=== PATIENT | male | born 1980 | race Asian ===

== ENCOUNTER 2016-11-07 22:25 | Emergency (ER) | payer OTHER ==
[~2016-11-07] VITALS: Ht 177.8 cm; Wt 99.7 kg
[2016-11-07] MEDS ORDERED: SOD CHLORIDE 0.9% 1,000 ML IV STA (22:28)
[2016-11-07] MEDS ORDERED: DIPHTH/TET/ACEL PERTUSS (ADULT) 0.5 ML VIAL IM* ONE (22:30)
[2016-11-07] MEDS ORDERED: NEOMYC/POLYMYX/BACIT 30 GM OINT TOP ONE (22:30)
[2016-11-07 22:40] VITALS: Ht 177.8 cm; Wt 99.7 kg
[2016-11-07 22:59] LABS: ADD SCAN DIFF NO
[2016-11-07] MEDS ORDERED: AMIODARONE 150 MG INJ IV STA (22:59)
[2016-11-07 23:11] LABS: BASOPHIL # 0.1 10^3/ul (0.0-0.1); BASOPHILS % 0.6 % (0.0-2.0); EOSINOPHILS # 0.4 10^3/ul (0.0-0.5); HEMATOCRIT 44.6 % (42.0-52.0); HEMOGLOBIN 14.8 g/dl (14.0-18.0); LYMPHOCYTES # 4.1 10^3/ul (0.8-2.9); LYMPHOCYTES % 38.4 % (15.0-51.0); MEAN CORPUSCULAR HEMOGLOBIN 29.5 pg (29.0-33.0); MEAN CORPUSCULAR HGB CONC 33.2 g/dl (32.0-37.0); MEAN CORPUSCULAR VOLUME 88.8 fl (82.0-101.0); MEAN PLATELET VOLUME 9.1 fl (7.4-10.4); MONOCYTE # 0.8 10^3/ul (0.3-0.9); MONOCYTES % 7.2 % (0.0-11.0); NEUTROPHIL # 5.3 10^3/ul (1.6-7.5); NEUTROPHILS % 49.2 % (39.0-77.0); PLATELET COUNT 317 10^3/UL (140-415); RED BLOOD COUNT 5.02 10^6/ul (4.70-6.10); WHITE BLOOD COUNT 10.8 10^3/ul (4.8-10.8)
[2016-11-07 23:28] LABS: ALBUMIN 4.1 g/dl (3.3-4.9); CHLORIDE 102 mmol/L (97-110)
[2016-11-07 23:29] LABS: POTASSIUM 3.3 mmol/L (3.5-5.1); SODIUM 138 mmol/L (135-144)
[2016-11-07] MEDS ORDERED: SIMV40TA2 PO (23:29)
[2016-11-07] MEDS ORDERED: SERT50TA6 PO (23:30)
[2016-11-07] MEDS ORDERED: AMLO-147 PO (23:30)
[2016-11-07 23:31] LABS: ALBUMIN/GLOBULIN RATIO 1.41; ANION GAP 16 (8-16); ASPARTATE AMINO TRANSFERASE 30 IU/L (15-46); BILIRUBIN,INDIRECT 0.1 mg/dl (0-1.1); BILIRUBIN,TOTAL 0.1 mg/dl (0.2-1.3); CARBON DIOXIDE 23 mmol/L (21-31); CREATININE 0.93 mg/dl (0.61-1.24)
[2016-11-07 23:32] LABS: ALANINE AMINOTRANSFERASE 35 IU/L (13-69); ALKALINE PHOSPHATASE 146 IU/L (42-121); BLOOD UREA NITROGEN 12 mg/dl (7-20); GLUCOSE 117 mg/dl (70-220)
[2016-11-07 23:37] LABS: TROPONIN-I < 0.012 ng/ml (0.00-0.12)
--- NOTE | 2016-11-07 23:43 | RADRPT ---
PROCEDURE: XR Chest. CLINICAL INDICATION: Abdominal pain. TECHNIQUE: Single frontal view of the chest was obtained COMPARISON: None FINDINGS: Heart size is at upper limits of normal. Hypoinflated lungs accentuate cardiac silhouette and pulmo nary vascular markings. The lungs are otherwise clear. There is no pleural effusion or pneumothorax. IMPRESSION: No acute disease. RPTAT: [facility] Physician Roldan Date Time Electronically viewed and signed by Physician Roldan on 11/07/2016 23:42 RS/
[2016-11-07] MEDS ORDERED: IBUP-1542 PO (23:57)
[2016-11-08] MEDS ORDERED: IBUPROFEN 600 MG TAB PO ONE
--- NOTE | 2016-11-08 | RADRPT ---
PROCEDURE: CT head, without contrast. CLINICAL INDICATION: Head trauma with concern for intracranial hemorrhage. TECHNIQUE: Noncontrast CT examination of the head, with axial, sagittal and coronal reformatted im ages. Automated dose exposure control was employed. CTDI: 44.40 and DLP: 720.23. COMPARISON: None. FINDINGS: No acute hemorrhage. Subarachnoid spaces are substantially preserved and symmetric. Ventricles ar e unremarkable. No mass effect. Herrera-white matter distinction is preserved without evident decreased attenuation t o suggest acute or recent infarct. Sinuses and osseous structures are unremarkable. IMPRESSION: No acute process in the head. RPTAT: [facility] Physician Roldan Date Time Electronically viewed and signed by Physician Roldan on 11/08/2016 00:00 RS/
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
[2016-11-08 00:50] VITALS: BP 133/83; PULSE 105; RESP 20
== END 2016-11-08 00:53 ==
LOC: E/R 22:25
DX: S29.001A Unspecified injury of muscle and tendon of front wall of thorax, initial encounter (principal); S00.81XA Abrasion of other part of head, initial encounter; I10 Essential (primary) hypertension; I45.6 Pre-excitation syndrome; R51 Headache; Y04.0XXA Assault by unarmed brawl or fight, initial encounter
CPT/HCPCS: 70450; 70486; 71010; 80053; 80306; 83690; 84484; 85025; 93005; J0282; J7030; 96374